=== PATIENT | male | born 1985 | race Caucasian/White ===

== ENCOUNTER 2021-05-26 18:04 | Emergency (ER) | payer OTHER ==
[2021-05-26 20:36] VITALS: PULSE 82
[2021-05-26] MEDS ORDERED: Cleocin Phosphate IV 600 MG/4 ML IM STA (20:43)
[2021-05-26] MEDS ORDERED: Cleocin Phosphate IV 600 MG/4 ML ONE ×2 (20:45→20:46)
--- NOTE | 2021-05-26 20:51 | ERPHSYRPT ---
- History of Present Illness Time Seen by Provider: 05/26/21 18:50 Source: patient Exam Limitations: no limitations Patient Subjective Stated Complaint: Pt states "I went to work last night and I think I have an infection in my mouth." Triage Nursing Assessment: Pt presented alert and oriented X 3, skin pwd. pt ambulates with an upright steady gait, able to speak in clear full sentences pt in no apaprent respiratory distress. Pt lower left jaw swollen and hot to touch. Physician History: Patient is a 35-year-old male presents to our ED for evaluation. Patient was sent to our ED by his dentist at [facility]. Patient was advised that he will need antibiotics. Patient states that he has a left lower jaw dental abscess. Pain and swelling has been progressive over the past 2 days. No trismus. No fever. Patient tolerating oral secretions well. Patient is nontoxic-appearing. Patient is conversant. Symptoms are mild to moderate in intensity. Percussion to the involved tooth reproduces symptoms. Patient otherwise feels well. He voices no other complaints concerns at this time. Timing/Duration: day(s) Severity: moderate Modifying Factors: Improves With: nothing Associated Symptoms: denies symptoms Allergies/Adverse Reactions: No Known Drug Allergies Allergy (Verified 05/26/21 18:54) Home Medications: Aspirin EC 81 mg [Ecotrin 81 mg] 81 mg PO DAILY 05/26/21 [History] Atorvastatin Calcium [Lipitor] 80 mg PO DAILY 05/26/21 [History] Clopidogrel Bisulfate 75 mg [PLAVIX 75 MG Tablet] 75 mg PO DAILY 05/26/21 [History] Isosorbide Mononitrate 30 mg [Imdur 30 MG] 30 mg PO DAILY 05/26/21 [History] Metoprolol Succinate 50 mg [Toprol Xl 50 MG] 50 mg PO DAILY 05/26/21 [History] lisinopriL [Lisinopril] 10 mg PO DAILY 05/26/21 [History] Hx Tetanus, Diphtheria Vaccination/Date Given: No Hx Influenza Vaccination/Date Given: No Hx Pneumococcal Vaccination/Date Given: No Immunizations Up to Date: Yes Travel Risk - International Travel Have you traveled outside of the country in past 3 weeks: No - Coronavirus Screening Are you exhibiting any of the following symptoms?: No Close contact with a COVID-19 positive Pt in past 14-21 Days: No - Vaccine Status Have you recieved a Covid-19 vaccination: No - Review of Systems Constitutional: No Symptoms, No Fever, No Chills Eyes: No Symptoms Ears, Nose, & Throat: No Symptoms Respiratory: No Symptoms, No Cough, No Dyspnea Cardiac: No Symptoms, No Chest Pain, No Edema, No Syncope Abdominal/Gastrointestinal: No Symptoms, No Abdominal Pain, No Nausea, No Vomiting, No Diarrhea Genitourinary Symptoms: No Symptoms, No Dysuria Musculoskeletal: No Symptoms, No Back Pain, No Neck Pain Skin: No Symptoms, No Rash Neurological: No Symptoms, No Dizziness, No Focal Weakness, No Sensory Changes Psychological: No Symptoms Endocrine: No Symptoms Hematologic/Lymphatic: No Symptoms Immunological/Allergic: No Symptoms All Other Systems: Reviewed and Negative - Past Medical History Pertinent Past Medical History: Yes Neurological History: No Pertinent History ENT History: No Pertinent History Cardiac History: Coronary Artery Disease, Hypertension, Myocardial Infarction (MA) Respiratory History: No Pertinent History Endocrine Medical History: No Pertinent History Musculoskeletal History: No Pertinent History GI Medical History: GERD History: No Pertinent History Psycho-Social History: Anxiety, Depression Male Reproductive Disorders: No Pertinent History - Past Surgical History Past Surgical History: Yes Other Surgical History: heart cath. brain surgery - Social History Smoking Status: Current every day smoker How long have you smoked: years Exposure to second hand smoke: Yes Drug Use: none Patient Lives Alone: No - Nursing Vital Signs Nursing Vital Signs: Initial Vital Signs Temperature 100.0 F 05/26/21 18:47 Pulse Rate 85 05/26/21 18:47 Respiratory Rate 20 05/26/21 18:47 Blood Pressure 156/88 05/26/21 18:47 O2 Sat by Pulse Oximetry 98 05/26/21 18:47 Pain Scale Pain Intensity 3 - Physical Exam General Appearance: no apparent distress, alert Eye Exam: PERRL/EOMI, eyes nml inspection Ears, Nose, Throat Exam: normal ENT inspection, TMs normal, pharynx normal, moist mucous membranes, other (Tooth #19 is carious. There is an adjacent dental abscess. No sublingual swelling. No Zia's angina. No trismus. No intraoral lesions. Uvula at midline. Patient tolerating oral secretions.) Neck Exam: normal inspection, non-tender, supple, full range of motion Respiratory Exam: normal breath sounds, lungs clear, airway intact, No respiratory distress Cardiovascular Exam: regular rate/rhythm, normal heart sounds, normal peripheral pulses Gastrointestinal/Abdomen Exam: soft, normal bowel sounds, No tenderness, No mass Back Exam: normal inspection, normal range of motion, No CVA tenderness, No vertebral tenderness Extremity Exam: normal inspection, normal range of motion, pelvis stable Neurologic Exam: alert, oriented x 3, cooperative, normal mood/affect, sensation nml, No motor deficits Skin Exam: normal color, warm, dry, No rash Lymphatic Exam: No adenopathy SpO2 Interpretation: normal SpO2: 97 - Course Nursing assessment & vital signs reviewed: Yes Ordered Tests: Medication Summary Discontinued Medications Generic Name Dose Route Start Last Admin Trade Name Fretiffany PRN Reason Stop Dose Admin Clindamycin Phosphate 900 mg 05/26/21 20:43 05/26/21 20:47 Cleocin Phosphate Iv 600 Mg/4 Ml IM 05/26/21 20:44 900 mg ONCE STA Administration Clindamycin Phosphate Confirm 05/26/21 20:45 Cleocin Phosphate Iv 600 Mg/4 Ml Administered 05/26/21 20:46 Dose 600 mg .ROUTE .STK-MED ONE Clindamycin Phosphate Confirm 05/26/21 20:46 Cleocin Phosphate Iv 600 Mg/4 Ml Administered 05/26/21 20:47 Dose 600 mg .ROUTE .STK-MED ONE - Progress Progress: improved Progress Note: Patient reassessed. He is well. Patient received 900 mg of clindamycin intramuscular. A prescription for clindamycin was forwarded to patient's pharmacy. Patient does not appear toxic. No trismus. No tachycardia. No Zia's angina observed. No indication for hospitalization or admission at this time. Will treat with intramuscular antibiotic and oral antibiotic for home. Patient to follow-up with his primary care doctor or his dentist within 48 hours for reevaluation. Patient advised that he may return to our ED as well if he cannot see his primary care or dentist. Patient voices no other complaints concerns at this time. Will discharge home. Portions of this note were created with voice recognition technology. There may be grammatical, spelling, punctuation or sound alike errors 05/26/21 20:50 05/26/21 20:57 05/26/21 21:01 Patient declined pain medication. Counseled pt/family regarding: lab results, diagnosis, need for follow-up - Departure Departure Disposition: Home Clinical Impression: DENTAL ASSESS Condition: Stable Critical Care Time: No Referrals: DOCTOR,NO FAMILY [Primary Care Provider] - LEVY BAHENA DO [ACTIVE STAFF] - Additional Instructions: Discharge/Care Plan ENRRIQUE ENGLISH was seen on 05/26/21 in the Emergency Room. The patient was counseled regarding Diagnosis,Lab results, Imaging studies, need for follow up and when to return to the Emergency Room. Prescriptions given: Discharge Note I have spoken with the patient and/or caregivers. I have explained the patient's condition, diagnosis and treatment plan based on the information available to me at this time. I have answered the patient's and/or caregiver's questions and addressed any concerns. The patient and/or caregivers have as good understanding of the patient's diagnosis, condition and treatment plan as can be expected at this point. The vital signs have been stable. The patient's condition is stable and appropriate for discharge from the emergency department. The patient will pursue further outpatient evaluation with the primary care physician or other designated or consulting physician as outlined in the discharge instructions. The patient and/or caregivers are agreeable to this plan of care and follow-up instructions have been explained in detail. The patient and/or caregivers have received these instruction. The patient/and or caregivers are aware that any significant change in condition or worsening of symptoms should prompt an immediate return to this or the closest emergency department or call 911. Prescriptions: Clindamycin HCl 300 mg PO QID 7 Days #28 cap
[2021-05-26 21:05] VITALS: BP 157/89; O2SAT 96
== END 2021-05-26 21:05 | disposition home or self-care (01) ==
LOC: ED 18:04
DX: K04.7 Periapical abscess without sinus (principal)
CPT/HCPCS: 96372; 99283